=== PATIENT | male | born 1975 | race Asian ===

== ENCOUNTER 2017-08-28 12:51 | Emergency (ER) | payer MEDICAID ==
[~2017-08-28] VITALS: Ht 193 cm; Wt 110.0 kg
[~2017-08-28 12:51] MED LIST: ASPI-621 PO; CARV6.2512 PO; DIAZ2TAB PO; DIGO125T6 PO; EPLE25TA4 PO; FURO40TA6 PO; FURO80TA3 PO; FURO80TA77 PO; HYDR-3245 PO; LEVE500T53 PO; LISI-167 PO; LISI5TAB7 PO; POTA20TA14 PO; PRED1TAB PO; RIVA20TA PO; SPIR25TA PO
[2017-08-28] MEDS ORDERED: DIVA250T14 PO (13:34)
[2017-08-28] MEDS ORDERED: SERT50TA5 PO (13:34)
[2017-08-28] MEDS ORDERED: HYDR-3307 PO (13:34)
[2017-08-28] MEDS ORDERED: LORazepam 1MG TABLET ONE (13:42)
[2017-08-28] MEDS ORDERED: LORazepam 1MG TABLET PO ONE (14:00)
[2017-08-28 14:24] LABS: HEMATOCRIT 50.9 % (39.2-51.8); HEMOGLOBIN 17.5 g/dL (13.7-18.0); WHITE BLOOD COUNT 11.2 x10^3/uL (3.4-10)
[2017-08-28 14:34] LABS: BLOOD UREA NITROGEN 12 mg/dL (7-18)
[2017-08-28 15:28] VITALS: BP 120/78
== END 2017-08-28 15:30 | disposition home or self-care (01) ==
LOC: ED 15:24
DX: J20.9 Acute bronchitis, unspecified (principal); B34.9 Viral infection, unspecified; I13.0 Hypertensive heart and chronic kidney disease with heart failure and stage 1 through stage 4 chronic kidney disease, or unspecified chronic kidney disease; N18.1 Chronic kidney disease, stage 1; I50.9 Heart failure, unspecified; M10.9 Gout, unspecified; M19.90 Unspecified osteoarthritis, unspecified site
CPT/HCPCS: 36415; 71020; 80048; 82040; 83880; 85025; 93005; 99285

== ENCOUNTER 2017-09-25 14:27 | Inpatient (IN) | payer MEDICARE, MEDICAID ==
[~2017-09-25] VITALS: Ht 193 cm; Wt 103.5 kg
[~2017-09-25 14:27] MED LIST changes: +DIVA250T14 PO; +HYDR-3307 PO; +SERT50TA5 PO
[2017-09-25 14:51] LABS: BASOPHILS # (AUTO) 0.03 x10^3/uL (0-0.1); BASOPHILS % (AUTO) 0 % (0-1); EOSINOPHILS # (AUTO) 0.15 x10^3/uL (0-0.4); EOSINOPHILS % (AUTO) 1 % (1-7); LYMPHOCYTES # (AUTO) 1.39 x10^3/uL (1-3.4); LYMPHOCYTES % (AUTO) 12 % (22-44); MD NO; MEAN CORPUSCULAR HEMOGLOBIN 30.3 pg (27.5-34.5); MEAN CORPUSCULAR HGB CONC 33.8 g/dL (33.2-36.2); MEAN CORPUSCULAR VOLUME 89.8 fL (81-97); MEAN PLATELET VOLUME 8.6 fL (7.4-10.4); MONOCYTES # (AUTO) 0.77 x10^3/uL (0.2-0.8); MONOCYTES % (AUTO) 7 % (2-9); NEUTROPHILS # (AUTO) 9.56 x10^3/uL (1.8-6.8); NEUTROPHILS % (AUTO) 80 % (42-75); PLATELET COUNT 298 x10^3/uL (130-400); RED BLOOD COUNT 3.74 x10^6/uL (4.38-5.82); RED CELL DISTRIBUTION WIDTH 13.9 % (9.4-14.8)
[2017-09-25 15:02] LABS: INTERNATIONAL NORMALIZED RATIO 1.24 (0.93-1.1); PROTHROMBIN TIME 12.7 Seconds (9.6-11.5)
[2017-09-25 15:08] LABS: TROPONIN I 0.058 ng/mL (0.000-0.045)
[2017-09-25] MEDS ORDERED: OMNIPAQUE 350 MG/ML, 100ML BOTTLE ONE (15:08)
[2017-09-25] MEDS ORDERED: ASPIRIN 81 MG TABLET CHEW ONE (15:13)
[2017-09-25] MEDS ORDERED: MORPHINE SULFATE 4 MG/ML, 1ML ONE ×2 (15:14→16:08)
[2017-09-25] MEDS ORDERED: ASPIRIN 81 MG TABLET CHEW PO ONE (15:30)
[2017-09-25] MEDS: MORPHINE SULFATE 4 MG/ML, 1ML IVPush PRN ×2 (15:33→16:12)
[2017-09-25] MEDS ORDERED: PIPERACILLIN/TAZO/PMX 3.375GM 50 ML IVPB ONE (16:00)
[2017-09-25] MEDS ORDERED: VANCOMYCIN PER PHARMACY IV ONE (16:00)
[2017-09-25] MEDS ORDERED: PIPERACILLIN/TAZO/PMX 3.375GM 50 ML ONE (16:02)
[2017-09-25] MEDS ORDERED: PHARMACOKINETIC CONSULTATION MC ONE ×2 (16:30→19:30)
[2017-09-25] MEDS ORDERED: VANCOMYCIN 2,000 MG in SODIUM CHLORIDE 0.9% 500 ML IV ONE (17:00)
[2017-09-25] MEDS ORDERED: VANCOMYCIN PER PHARMACY MC SCH (18:30)
[2017-09-25] MEDS ORDERED: ONDANSETRON 2MG/ML, 2ML IVPush PRN (18:30)
[2017-09-25 18:54] LABS: FREE T4 (FREE THYROXINE) 1.43 ng/dL (0.76-1.46); THYROID STIMULATING HORMONE 0.779 mIU/L (0.358-3.740)
[2017-09-25 19:04] VITALS: BP 90/57
[2017-09-25] MEDS ORDERED: PHARMACOKINETIC MONITORING MC PRN (19:30)
[2017-09-25] MEDS: LEVETIRACETAM 500 MG in SODIUM CHLORIDE 0.9% 100 ML IV SCH (20:57)
[2017-09-25] MEDS: ENOXAPARIN 40 MG/0.4 ML SQ SCH (20:58)
[2017-09-25] MEDS: PIPERACILLIN/TAZO/PMX 3.375GM 50 ML IVPB SCH (22:47)
[2017-09-26] VITALS (7 sets, daily range): BP systolic 87–107; BP diastolic 52–73
[2017-09-26] MEDS: morphine SULFATE 10 MG/ML, 1ML IVPush PRN ×2 (01:21→21:55)
[2017-09-26] MEDS ORDERED: ALBUTEROL SULFATE 2.5 MG/3 ML NPPB PRN (04:30)
[2017-09-26] MEDS: PIPERACILLIN/TAZO/PMX 3.375GM 50 ML IVPB SCH ×4 (04:34→23:13)
[2017-09-26 04:52] LABS: BASOPHILS # (AUTO) 0.06 x10^3/uL (0-0.1); BASOPHILS % (AUTO) 1 % (0-1); EOSINOPHILS # (AUTO) 0.18 x10^3/uL (0-0.4); EOSINOPHILS % (AUTO) 2 % (1-7); LYMPHOCYTES # (AUTO) 2.21 x10^3/uL (1-3.4); LYMPHOCYTES % (AUTO) 21 % (22-44); MD NO; MEAN CORPUSCULAR HEMOGLOBIN 30.6 pg (27.5-34.5); MEAN CORPUSCULAR HGB CONC 33.6 g/dL (33.2-36.2); MEAN CORPUSCULAR VOLUME 91.2 fL (81-97); MEAN PLATELET VOLUME 8.7 fL (7.4-10.4); MONOCYTES # (AUTO) 0.68 x10^3/uL (0.2-0.8); MONOCYTES % (AUTO) 6 % (2-9); NEUTROPHILS # (AUTO) 7.43 x10^3/uL (1.8-6.8); NEUTROPHILS % (AUTO) 70 % (42-75); PLATELET COUNT 286 x10^3/uL (130-400); RED BLOOD COUNT 3.67 x10^6/uL (4.38-5.82); RED CELL DISTRIBUTION WIDTH 14.1 % (9.4-14.8)
[2017-09-26 05:01] LABS: ANION GAP 10 mmol/L (5-15); CALCIUM 8.2 mg/dL (8.5-10.1); CHLORIDE 112 mmol/L (98-107); CREATININE 0.92 mg/dL (0.7-1.3)
[2017-09-26] MEDS: VANCOMYCIN 2,000 MG in SODIUM CHLORIDE 0.9% 500 ML IV SCH ×2 (05:25→17:04)
[2017-09-26 08:51] LABS: CHOL/HDL RATIO 4.2; LDL/HDL RATIO 2.6 (0.5-3.0)
[2017-09-26] MEDS: PANTOPRAZOLE 40 MG IV IVPush SCH (10:01)
[2017-09-26] MEDS: LEVETIRACETAM 500 MG in SODIUM CHLORIDE 0.9% 100 ML IV SCH ×2 (10:01→21:56)
[2017-09-26] MEDS: DIGOXIN 0.125 MG TABLET PO SCH (10:02)
[2017-09-26] MEDS: SACUBITRIL/VALSARTAN 24MG-26MG TAB PO SCH ×2 (10:02→21:00)
[2017-09-26] MEDS: FUROSEMIDE 10 MG/ML ORAL SOL PO SCH (11:47)
[2017-09-26 16:01] LABS: AMPHETAMINE SCREEN, URINE Positive (Negative); BARBITURATE SCREEN, URINE Negative (Negative); BENZODIAZEPINE SCREEN, URINE Negative (Negative); CANNABINOID SCREEN, URINE Positive (Negative); COCAINE SCREEN, URINE Negative (Negative); METHADONE SCREEN, URINE Negative (Negative); OPIATE SCREEN, URINE Positive (Negative)
[2017-09-26] MEDS: METHOCARBAMOL 500 MG TABLET PO PRN (17:04)
[2017-09-26] MEDS: CARVEDILOL 6.25 MG TABLET PO SCH (20:00)
[2017-09-26] MEDS: ENOXAPARIN 40 MG/0.4 ML SQ SCH (21:56)
[2017-09-26] MEDS: ATORVASTATIN 40 MG TABLET PO SCH (21:56)
[2017-09-27] VITALS (8 sets, daily range): BP systolic 94–107; BP diastolic 61–72
[2017-09-27] MEDS: METHOCARBAMOL 500 MG TABLET PO PRN ×2 (03:16→10:52)
[2017-09-27] MEDS: CARVEDILOL 6.25 MG TABLET PO SCH ×2 (05:04→18:05)
[2017-09-27] MEDS: PIPERACILLIN/TAZO/PMX 3.375GM 50 ML IVPB SCH ×2 (05:07→12:11)
[2017-09-27] MEDS: ASPIRIN 81 MG TABLET EC PO SCH (05:08)
[2017-09-27] MEDS: VANCOMYCIN 2,000 MG in SODIUM CHLORIDE 0.9% 500 ML IV SCH (06:39)
[2017-09-27] MEDS: PANTOPRAZOLE 40 MG IV IVPush SCH (10:38)
[2017-09-27] MEDS: LEVETIRACETAM 500 MG in SODIUM CHLORIDE 0.9% 100 ML IV SCH (10:38)
[2017-09-27] MEDS: FUROSEMIDE 10 MG/ML ORAL SOL PO SCH (10:51)
[2017-09-27] MEDS: SACUBITRIL/VALSARTAN 24MG-26MG TAB PO SCH ×2 (10:52→21:00)
[2017-09-27] MEDS: DIGOXIN 0.125 MG TABLET PO SCH (10:52)
[2017-09-27] MEDS: OXYcodone IR 5MG TABLET PO PRN ×2 (13:30→18:05)
[2017-09-27] MEDS ORDERED: SERT100T5 PO (16:15)
[2017-09-27] MEDS ORDERED: HYDR50CA PO (16:17)
[2017-09-27] MEDS: ENOXAPARIN 40 MG/0.4 ML SQ SCH (21:26)
[2017-09-27] MEDS: ATORVASTATIN 40 MG TABLET PO SCH (21:27)
[2017-09-27] MEDS: hydrOXyzine 50MG TABLET PO SCH (21:27)
[2017-09-28] VITALS (13 sets, daily range): BP systolic 93–124; BP diastolic 44–78
[2017-09-28] MEDS: OXYcodone IR 5MG TABLET PO PRN ×2 (04:43→19:54)
[2017-09-28] MEDS: CARVEDILOL 6.25 MG TABLET PO SCH ×2 (05:15→18:00)
[2017-09-28] MEDS: ASPIRIN 81 MG TABLET EC PO SCH (05:15)
[2017-09-28] MEDS: SACUBITRIL/VALSARTAN 24MG-26MG TAB PO SCH ×2 (09:00→21:14)
[2017-09-28] MEDS: PANTOPRAZOLE 40 MG IV IVPush SCH (09:33)
[2017-09-28] MEDS: SERTRALINE 100MG TABLET PO SCH (09:34)
[2017-09-28] MEDS: DIGOXIN 0.125 MG TABLET PO SCH (09:34)
[2017-09-28] MEDS: FUROSEMIDE 10 MG/ML ORAL SOL PO SCH (09:34)
[2017-09-28] MEDS ORDERED: OXYC5TAB3 PO (14:18)
[2017-09-28] MEDS ORDERED: ALPR-475 PO (14:18)
[2017-09-28] MEDS: ATORVASTATIN 40 MG TABLET PO SCH (21:13)
[2017-09-28] MEDS: hydrOXyzine 50MG TABLET PO SCH (21:13)
[2017-09-28] MEDS: ENOXAPARIN 40 MG/0.4 ML SQ SCH (21:13)
[2017-09-29] VITALS (12 sets, daily range): BP systolic 100–123; BP diastolic 60–84
[2017-09-29] MEDS: ASPIRIN 81 MG TABLET EC PO SCH (05:51)
[2017-09-29] MEDS: CARVEDILOL 6.25 MG TABLET PO SCH ×3 (05:52→17:34)
[2017-09-29] MEDS: SERTRALINE 100MG TABLET PO SCH (08:44)
[2017-09-29] MEDS: PANTOPROZOLE 40MG TABLET PO SCH (08:45)
[2017-09-29] MEDS: DIGOXIN 0.125 MG TABLET PO SCH (08:45)
[2017-09-29] MEDS: FUROSEMIDE 10 MG/ML ORAL SOL PO SCH (08:45)
[2017-09-29] MEDS: SACUBITRIL/VALSARTAN 24MG-26MG TAB PO SCH ×2 (08:54→20:18)
[2017-09-29] MEDS ORDERED: BISACODYL 10 MG SUPP PR PRN (13:00)
[2017-09-29] MEDS ORDERED: LACTULOSE 20 GM/30 ML UDC PO PRN (13:00)
[2017-09-29] MEDS: DOCUSATE 100 MG CAPSULE PO SCH (13:00)
[2017-09-29] MEDS: SENNA/DOCUSATE TABLET PO SCH (20:17)
[2017-09-29] MEDS: ATORVASTATIN 40 MG TABLET PO SCH (20:17)
[2017-09-29] MEDS: hydrOXyzine 50MG TABLET PO SCH (20:18)
[2017-09-29] MEDS: ENOXAPARIN 40 MG/0.4 ML SQ SCH (20:18)
[2017-09-29] MEDS: OXYcodone IR 5MG TABLET PO PRN (20:18)
[2017-09-30 01:24] VITALS: BP 100/66
[2017-09-30] MEDS: OXYcodone IR 5MG TABLET PO PRN ×3 (04:56→20:37)
[2017-09-30] MEDS: ASPIRIN 81 MG TABLET EC PO SCH (04:56)
[2017-09-30 04:57] VITALS: BP 110/76
[2017-09-30] MEDS: CARVEDILOL 6.25 MG TABLET PO SCH ×2 (04:57→17:52)
[2017-09-30 07:52] VITALS: BP 106/67
[2017-09-30] MEDS: SERTRALINE 100MG TABLET PO SCH (08:04)
[2017-09-30] MEDS: PANTOPROZOLE 40MG TABLET PO SCH (08:04)
[2017-09-30] MEDS: DOCUSATE 100 MG CAPSULE PO SCH (08:04)
[2017-09-30] MEDS: DIGOXIN 0.125 MG TABLET PO SCH (08:04)
[2017-09-30] MEDS: FUROSEMIDE 10 MG/ML ORAL SOL PO SCH (08:05)
[2017-09-30] MEDS: SACUBITRIL/VALSARTAN 24MG-26MG TAB PO SCH ×2 (08:05→20:38)
[2017-09-30 12:08] VITALS: BP 101/66
[2017-09-30 13:34] VITALS: BP 92/55
[2017-09-30 20:01] VITALS: BP 103/70
[2017-09-30] MEDS: ATORVASTATIN 40 MG TABLET PO SCH (20:37)
[2017-09-30] MEDS: SENNA/DOCUSATE TABLET PO SCH (20:37)
[2017-09-30] MEDS: hydrOXyzine 50MG TABLET PO SCH (20:37)
[2017-09-30] MEDS: ENOXAPARIN 40 MG/0.4 ML SQ SCH (20:38)
[2017-09-30] MEDS ORDERED: NICOTINE 14MG/24 HR PATCH.TD24 TD ONE (22:00)
[2017-10-01 02:06] VITALS: BP 109/71
[2017-10-01] MEDS: OXYcodone IR 5MG TABLET PO PRN ×3 (02:36→16:29)
[2017-10-01] MEDS: CARVEDILOL 6.25 MG TABLET PO SCH ×2 (06:22→17:38)
[2017-10-01] MEDS: ASPIRIN 81 MG TABLET EC PO SCH (06:22)
[2017-10-01 07:35] VITALS: BP 118/77
[2017-10-01] MEDS: FUROSEMIDE 10 MG/ML ORAL SOL PO SCH (08:00)
[2017-10-01] MEDS: SACUBITRIL/VALSARTAN 24MG-26MG TAB PO SCH ×2 (08:01→20:38)
[2017-10-01] MEDS: PANTOPROZOLE 40MG TABLET PO SCH (08:02)
[2017-10-01] MEDS: DIGOXIN 0.125 MG TABLET PO SCH (08:02)
[2017-10-01] MEDS: SERTRALINE 100MG TABLET PO SCH (08:02)
[2017-10-01] MEDS: DOCUSATE 100 MG CAPSULE PO SCH (08:03)
[2017-10-01] MEDS: METHOCARBAMOL 500 MG TABLET PO PRN (12:38)
[2017-10-01 13:25] VITALS: BP 94/55
[2017-10-01 17:37] VITALS: BP 107/74
[2017-10-01 20:30] VITALS: BP 98/59
[2017-10-01] MEDS ORDERED: TEMAZEPAM 30 MG CAPSULE PO ONE (20:30)
[2017-10-01] MEDS: ATORVASTATIN 40 MG TABLET PO SCH (20:37)
[2017-10-01] MEDS: ENOXAPARIN 40 MG/0.4 ML SQ SCH (20:37)
[2017-10-01] MEDS: hydrOXyzine 50MG TABLET PO SCH (20:38)
[2017-10-02 02:40] VITALS: BP 114/74
[2017-10-02 03:31] LABS: TROPONIN I < 0.015 ng/mL (0.000-0.045)
[2017-10-02 03:41] LABS: CREATININE 0.94 mg/dL (0.7-1.3)
[2017-10-02 05:28] VITALS: BP 103/65
[2017-10-02] MEDS: CARVEDILOL 6.25 MG TABLET PO SCH ×2 (05:32→17:18)
[2017-10-02] MEDS: ASPIRIN 81 MG TABLET EC PO SCH (05:33)
[2017-10-02 07:35] VITALS: BP 111/71
[2017-10-02] MEDS: SACUBITRIL/VALSARTAN 24MG-26MG TAB PO SCH ×2 (09:00→20:53)
[2017-10-02] MEDS: DOCUSATE 100 MG CAPSULE PO SCH (09:00)
[2017-10-02] MEDS: PANTOPROZOLE 40MG TABLET PO SCH (09:20)
[2017-10-02] MEDS: FUROSEMIDE 10 MG/ML ORAL SOL PO SCH (09:20)
[2017-10-02] MEDS: SERTRALINE 100MG TABLET PO SCH (09:20)
[2017-10-02] MEDS: DIGOXIN 0.125 MG TABLET PO SCH (09:20)
[2017-10-02 09:48] LABS: TROPONIN I < 0.015 ng/mL (0.000-0.045)
[2017-10-02] MEDS: OXYcodone IR 5MG TABLET PO PRN (13:10)
[2017-10-02 14:11] VITALS: BP 82/55
[2017-10-02] MEDS ORDERED: SODIUM CHLORIDE 0.9%, 250ML IVBOLUS ONE (14:30)
[2017-10-02 15:54] VITALS: BP 94/61
[2017-10-02 16:33] LABS: TROPONIN I < 0.015 ng/mL (0.000-0.045)
[2017-10-02] MEDS ORDERED: KETOROLAC 30 MG/1 ML ONE (17:11)
[2017-10-02] MEDS ORDERED: KETOROLAC 30 MG/1 ML IM ONE (17:30)
[2017-10-02] MEDS ORDERED: KETOROLAC 30 MG/1 ML IVPush ONE (17:30)
[2017-10-02 19:44] VITALS: BP 114/66
[2017-10-02] MEDS: ENOXAPARIN 40 MG/0.4 ML SQ SCH (20:52)
[2017-10-02] MEDS: hydrOXyzine 50MG TABLET PO SCH (20:53)
[2017-10-02] MEDS: ATORVASTATIN 40 MG TABLET PO SCH (20:53)
[2017-10-03] MEDS ORDERED: DIPHENHYDRAMINE 50 MG CAPSULE PO ONE
[2017-10-03 00:08] VITALS: BP 104/71
[2017-10-03 00:26] VITALS: BP 102/66
[2017-10-03 05:29] VITALS: BP 82/47
[2017-10-03] MEDS: CARVEDILOL 6.25 MG TABLET PO SCH (05:30)
[2017-10-03] MEDS: ASPIRIN 81 MG TABLET EC PO SCH (05:31)
[2017-10-03 05:35] LABS: BASOPHILS # (AUTO) 0.05 x10^3/uL (0-0.1); BASOPHILS % (AUTO) 1 % (0-1); EOSINOPHILS # (AUTO) 0.21 x10^3/uL (0-0.4); EOSINOPHILS % (AUTO) 3 % (1-7); LYMPHOCYTES # (AUTO) 2.71 x10^3/uL (1-3.4); LYMPHOCYTES % (AUTO) 36 % (22-44); MD NO; MEAN CORPUSCULAR HEMOGLOBIN 30.1 pg (27.5-34.5); MEAN CORPUSCULAR HGB CONC 33.3 g/dL (33.2-36.2); MEAN CORPUSCULAR VOLUME 90.3 fL (81-97); MONOCYTES # (AUTO) 0.48 x10^3/uL (0.2-0.8); MONOCYTES % (AUTO) 6 % (2-9); NEUTROPHILS # (AUTO) 4.09 x10^3/uL (1.8-6.8); NEUTROPHILS % (AUTO) 54 % (42-75); PLATELET COUNT 397 x10^3/uL (130-400); RED BLOOD COUNT 4.79 x10^6/uL (4.38-5.82); RED CELL DISTRIBUTION WIDTH 14.7 % (9.4-14.8)
[2017-10-03 05:50] LABS: ALBUMIN 3.2 g/dL (3.4-5.0); ANION GAP 8 mmol/L (5-15); CHLORIDE 110 mmol/L (98-107)
[2017-10-03 05:54] LABS: ALANINE AMINOTRANSFERASE 38 U/L (12-78); ALKALINE PHOSPHATASE 64 U/L (45-117); CREATININE 0.93 mg/dL (0.7-1.3); TOTAL PROTEIN 6.8 g/dL (6.4-8.2)
[2017-10-03 08:59] VITALS: BP 96/61
[2017-10-03] MEDS: DOCUSATE 100 MG CAPSULE PO SCH (09:00)
[2017-10-03] MEDS ORDERED: FUROSEMIDE 20 MG TABLET PO SCH (09:00)
[2017-10-03] MEDS: PANTOPROZOLE 40MG TABLET PO SCH (09:03)
[2017-10-03] MEDS: SERTRALINE 100MG TABLET PO SCH (09:03)
[2017-10-03] MEDS: DIGOXIN 0.125 MG TABLET PO SCH (09:03)
[2017-10-03] MEDS: SACUBITRIL/VALSARTAN 24MG-26MG TAB PO SCH (09:04)
== END 2017-10-03 13:40 | disposition left against medical advice (07) | DRG 871 ==
LOC: ED 15:27 → EDIP 16:14 → 4WST 18:57
PROVIDERS: ADMIT Hospitalist; ATTEND Hospitalist
DX: A41.9 Sepsis, unspecified organism (principal); I63.511 Cerebral infarction due to unspecified occlusion or stenosis of right middle cerebral artery; J96.91 Respiratory failure, unspecified with hypoxia; J15.9 Unspecified bacterial pneumonia; D68.9 Coagulation defect, unspecified; C95.90 Leukemia, unspecified not having achieved remission; I13.0 Hypertensive heart and chronic kidney disease with heart failure and stage 1 through stage 4 chronic kidney disease, or unspecified chronic kidney disease; I31.3 Pericardial effusion (noninflammatory); I50.9 Heart failure, unspecified; I69.354 Hemiplegia and hemiparesis following cerebral infarction affecting left non-dominant side; R41.4 Neurologic neglect syndrome; I25.5 Ischemic cardiomyopathy; D64.9 Anemia, unspecified; F12.90 Cannabis use, unspecified, uncomplicated; F15.90 Other stimulant use, unspecified, uncomplicated; F41.9 Anxiety disorder, unspecified; G40.909 Epilepsy, unspecified, not intractable, without status epilepticus; G47.33 Obstructive sleep apnea (adult) (pediatric); W19.XXXA Unspecified fall, initial encounter; Z53.21 Procedure and treatment not carried out due to patient leaving prior to being seen by health care provider; I48.91 Unspecified atrial fibrillation; M1A.9XX0 Chronic gout, unspecified, without tophus (tophi); N18.1 Chronic kidney disease, stage 1; R29.810 Facial weakness; Z72.0 Tobacco use; Z79.82 Long term (current) use of aspirin; Z79.899 Other long term (current) drug therapy; Z82.49 Family history of ischemic heart disease and other diseases of the circulatory system; Z83.3 Family history of diabetes mellitus; Z87.01 Personal history of pneumonia (recurrent); Z92.21 Personal history of antineoplastic chemotherapy; Z95.0 Presence of cardiac pacemaker; Z95.810 Presence of automatic (implantable) cardiac defibrillator; Y93.89 Activity, other specified; Y92.89 Other specified places as the place of occurrence of the external cause
CPT/HCPCS: 36415; 36600; 70450; 70496; 70498; 70551; 71010; 72125; 80047; 80048; 80053; 80061; 80202; 80307; 82565; 82803; 83605; 83735; 83880; 84100; 84439; 84443; 84484; 85025; 85610; 85730; 87040; 88184; 88185; 88189; 93005; 93306; 96365; 96375; 96376; J1650; J1885; J1953; J2543; J3370; Q9967; 92522-GN; C9113; G0479; J2270; J7040

== ENCOUNTER 2017-10-03 15:08 | Emergency (ER) | payer MEDICARE, MEDICAID ==
[~2017-10-03] VITALS: Ht 193 cm; Wt 105.0 kg
[~2017-10-03 15:08] MED LIST changes: +ALPR-475 PO; +HYDR50CA PO; +OXYC5TAB3 PO; +SERT100T5 PO
[2017-10-03] MEDS ORDERED: ASPIRIN 81 MG TABLET CHEW PO ONE (15:30)
[2017-10-03] MEDS ORDERED: ASPIRIN 81 MG TABLET CHEW ONE (15:52)
[2017-10-03 16:03] VITALS: BP 111/77
[2017-10-03 16:07] LABS: BASOPHILS # (AUTO) 0.03 x10^3/uL (0-0.1); BASOPHILS % (AUTO) 0 % (0-1); EOSINOPHILS % (AUTO) 1 % (1-7); LYMPHOCYTES # (AUTO) 1.65 x10^3/uL (1-3.4); LYMPHOCYTES % (AUTO) 19 % (22-44); MD NO; MEAN CORPUSCULAR HEMOGLOBIN 30.2 pg (27.5-34.5); MEAN CORPUSCULAR VOLUME 91.4 fL (81-97); MEAN PLATELET VOLUME 8.1 fL (7.4-10.4); MONOCYTES # (AUTO) 0.34 x10^3/uL (0.2-0.8); MONOCYTES % (AUTO) 4 % (2-9); NEUTROPHILS # (AUTO) 6.52 x10^3/uL (1.8-6.8); NEUTROPHILS % (AUTO) 75 % (42-75); PLATELET COUNT 436 x10^3/uL (130-400); RED BLOOD COUNT 5.17 x10^6/uL (4.38-5.82); RED CELL DISTRIBUTION WIDTH 14.3 % (9.4-14.8)
[2017-10-03 16:10] LABS: INTERNATIONAL NORMALIZED RATIO 1.1 (0.93-1.1); PROTHROMBIN TIME 11.4 Seconds (9.6-11.5)
[2017-10-03 16:13] LABS: ALANINE AMINOTRANSFERASE 43 U/L (12-78); ALBUMIN 3.7 g/dL (3.4-5.0); ANION GAP 10 mmol/L (5-15); CALCIUM 9.2 mg/dL (8.5-10.1); CHLORIDE 109 mmol/L (98-107); CREATININE 1.13 mg/dL (0.7-1.3)
[2017-10-03 16:17] LABS: ALKALINE PHOSPHATASE 75 U/L (45-117); TOTAL PROTEIN 7.6 g/dL (6.4-8.2); TROPONIN I < 0.015 ng/mL (0.000-0.045)
== END 2017-10-03 17:33 | disposition short-term general hospital (02) ==
LOC: ED 17:00
DX: S09.93XA Unspecified injury of face, initial encounter (principal); I63.9 Cerebral infarction, unspecified; F17.210 Nicotine dependence, cigarettes, uncomplicated; I13.10 Hypertensive heart and chronic kidney disease without heart failure, with stage 1 through stage 4 chronic kidney disease, or unspecified chronic kidney disease; N18.1 Chronic kidney disease, stage 1; Z95.810 Presence of automatic (implantable) cardiac defibrillator; W01.0XXA Fall on same level from slipping, tripping and stumbling without subsequent striking against object, initial encounter; Y93.89 Activity, other specified; Y92.89 Other specified places as the place of occurrence of the external cause; Y99.8 Other external cause status
CPT/HCPCS: 36415; 71045; 80053; 83880; 84484; 85025; 85610; 93005; 99285

== ENCOUNTER 2017-10-08 09:53 | Emergency (ER) | payer MEDICARE, MEDICAID ==
[~2017-10-08] VITALS: Ht 193 cm; Wt 100.0 kg
[2017-10-08 11:48] VITALS: BP 120/85
== END 2017-10-08 12:14 | disposition short-term general hospital (02) ==
LOC: ED 10:42
DX: S00.93XA Contusion of unspecified part of head, initial encounter (principal); W06.XXXA Fall from bed, initial encounter; Y93.89 Activity, other specified; Y92.009 Unspecified place in unspecified non-institutional (private) residence as the place of occurrence of the external cause; Y99.9 Unspecified external cause status; I13.0 Hypertensive heart and chronic kidney disease with heart failure and stage 1 through stage 4 chronic kidney disease, or unspecified chronic kidney disease; N18.1 Chronic kidney disease, stage 1; I50.9 Heart failure, unspecified; Z86.73 Personal history of transient ischemic attack (TIA), and cerebral infarction without residual deficits
CPT/HCPCS: 70450; 99285

== ENCOUNTER 2017-10-24 21:09 | Inpatient (IN) | payer MEDICARE, MEDICAID ==
[~2017-10-24] VITALS: Ht 193 cm; Wt 98.6 kg
[2017-10-24 21:49] LABS: BASOPHILS # (AUTO) 0.06 x10^3/uL (0-0.1); BASOPHILS % (AUTO) 1 % (0-1); EOSINOPHILS # (AUTO) 0.17 x10^3/uL (0-0.4); EOSINOPHILS % (AUTO) 2 % (1-7); LYMPHOCYTES # (AUTO) 3.79 x10^3/uL (1-3.4); LYMPHOCYTES % (AUTO) 35 % (22-44); MD NO; MEAN CORPUSCULAR HEMOGLOBIN 29.5 pg (27.5-34.5); MEAN CORPUSCULAR HGB CONC 33.3 g/dL (33.2-36.2); MEAN CORPUSCULAR VOLUME 88.6 fL (81-97); MEAN PLATELET VOLUME 8.5 fL (7.4-10.4); MONOCYTES # (AUTO) 0.72 x10^3/uL (0.2-0.8); MONOCYTES % (AUTO) 7 % (2-9); NEUTROPHILS # (AUTO) 6.25 x10^3/uL (1.8-6.8); NEUTROPHILS % (AUTO) 57 % (42-75); PLATELET COUNT 309 x10^3/uL (130-400); RED BLOOD COUNT 5.02 x10^6/uL (4.38-5.82); RED CELL DISTRIBUTION WIDTH 13.5 % (9.4-14.8)
[2017-10-24 22:02] LABS: ALBUMIN 3.7 g/dL (3.4-5.0); ANION GAP 10 mmol/L (5-15); CALCIUM 8.9 mg/dL (8.5-10.1); CHLORIDE 110 mmol/L (98-107); CREATININE 0.97 mg/dL (0.7-1.3)
[2017-10-24 22:06] LABS: TROPONIN I < 0.015 ng/mL (0.000-0.045)
[2017-10-24] MEDS ORDERED: ACETAMINOPHEN 325 MG TABLET PO PRN (23:00)
[2017-10-24] MEDS ORDERED: DOCUSATE 100 MG CAPSULE PO PRN (23:00)
[2017-10-24] MEDS ORDERED: HYDROcodone/APAP 5/325 TABLET PO PRN (23:00)
[2017-10-24] MEDS ORDERED: SODIUM CHLORIDE FLUSH 10ML SYR IVF PRN (23:00)
[2017-10-24] MEDS: HYDROcodone/APAP 10/325 MG TABLET PO SCH (23:00)
[2017-10-24] MEDS ORDERED: ONDANSETRON 2MG/ML, 2ML IVPush PRN (23:00)
[2017-10-24] MEDS ORDERED: POLYETHYLENE GLYCOL 17 GM PACKET PO PRN (23:00)
[2017-10-24 23:21] VITALS: BP 131/80
[2017-10-25] MEDS: SERTRALINE 100MG TABLET PO SCH ×2 (00:22→21:11)
[2017-10-25] MEDS: ENOXAPARIN 40 MG/0.4 ML SQ SCH ×2 (00:22→21:11)
[2017-10-25] MEDS: CARVEDILOL 6.25 MG TABLET PO SCH ×3 (00:24→21:11)
[2017-10-25 02:48] LABS: AMPHETAMINE SCREEN, URINE Negative (Negative); BARBITURATE SCREEN, URINE Negative (Negative); BENZODIAZEPINE SCREEN, URINE Negative (Negative); CANNABINOID SCREEN, URINE Positive (Negative); COCAINE SCREEN, URINE Negative (Negative); METHADONE SCREEN, URINE Negative (Negative); OPIATE SCREEN, URINE Positive (Negative)
[2017-10-25 03:08] VITALS: BP 95/66
[2017-10-25] MEDS: ASPIRIN 81 MG TABLET EC PO SCH (05:56)
[2017-10-25 06:52] LABS: TROPONIN I < 0.015 ng/mL (0.000-0.045)
[2017-10-25 08:26] VITALS: BP 88/67
[2017-10-25] MEDS: SERTRALINE 50MG TABLET PO SCH (08:29)
[2017-10-25] MEDS: SODIUM CHLORIDE FLUSH 10ML SYR IVF SCH ×2 (08:29→21:10)
[2017-10-25] MEDS: DIGOXIN 0.125 MG TABLET PO SCH (08:30)
[2017-10-25] MEDS: HYDROcodone/APAP 10/325 MG TABLET PO SCH ×3 (08:31→21:11)
[2017-10-25] MEDS ORDERED: FUROSEMIDE 80 MG TABLET PO SCH (09:00)
[2017-10-25] MEDS ORDERED: LISINOPRIL 5 MG TABLET PO SCH (09:00)
[2017-10-25] MEDS ORDERED: REGADENOSON 0.4 MG/5 ML SYRINGE ONE (10:19)
[2017-10-25] MEDS ORDERED: AMINOPHYLLINE 25 MG/ML, 10ML ONE (10:40)
[2017-10-25 13:00] VITALS: BP 103/74
[2017-10-25] MEDS: NICOTINE 21 MG/24 HR PATCH.TD24 TD SCH (16:59)
[2017-10-25 18:20] VITALS: BP 108/66
[2017-10-25] MEDS ORDERED: FUROSEMIDE 40 MG TABLET PO SCH ×2 (21:00)
[2017-10-25 21:20] VITALS: BP 102/63
[2017-10-26 01:16] VITALS: BP 104/69
[2017-10-26] MEDS: ASPIRIN 81 MG TABLET EC PO SCH (05:55)
[2017-10-26 07:10] VITALS: BP 106/77
[2017-10-26] MEDS: DIGOXIN 0.125 MG TABLET PO SCH (08:29)
[2017-10-26] MEDS: HYDROcodone/APAP 10/325 MG TABLET PO SCH ×2 (08:29→15:02)
[2017-10-26] MEDS: CARVEDILOL 6.25 MG TABLET PO SCH (08:29)
[2017-10-26] MEDS: SODIUM CHLORIDE FLUSH 10ML SYR IVF SCH (08:30)
[2017-10-26] MEDS: SERTRALINE 50MG TABLET PO SCH (08:32)
[2017-10-26] MEDS: NICOTINE 21 MG/24 HR PATCH.TD24 TD SCH (08:34)
[2017-10-26] MEDS ORDERED: LISINOPRIL 5 MG TABLET PO SCH (09:00)
[2017-10-26] MEDS ORDERED: FUROSEMIDE 80 MG TABLET PO SCH (09:00)
[2017-10-26 13:23] VITALS: BP 108/64
== END 2017-10-26 16:26 | DRG 309 ==
LOC: ED 21:31 → SUATTDRO 22:39 → INTOOBSV 23:23 → EDIP 23:23 → 5SO 23:27 → OBSVTOIN 10-26 09:40
PROVIDERS: ADMIT Family Medicine; ATTEND Family Medicine
DX: I49.8 Other specified cardiac arrhythmias (principal); I13.0 Hypertensive heart and chronic kidney disease with heart failure and stage 1 through stage 4 chronic kidney disease, or unspecified chronic kidney disease; I50.22 Chronic systolic (congestive) heart failure; I69.354 Hemiplegia and hemiparesis following cerebral infarction affecting left non-dominant side; R07.9 Chest pain, unspecified; I25.5 Ischemic cardiomyopathy; F41.9 Anxiety disorder, unspecified; F10.10 Alcohol abuse, uncomplicated; M19.90 Unspecified osteoarthritis, unspecified site; F41.0 Panic disorder [episodic paroxysmal anxiety]; N18.1 Chronic kidney disease, stage 1; M10.9 Gout, unspecified; Z83.3 Family history of diabetes mellitus; Z82.49 Family history of ischemic heart disease and other diseases of the circulatory system; Z85.6 Personal history of leukemia; Z95.810 Presence of automatic (implantable) cardiac defibrillator; Z87.01 Personal history of pneumonia (recurrent)
CPT/HCPCS: 36415; 71045; 78452; 80048; 80162; 80307; 82040; 83735; 83880; 84484; 85025; 85379; 93005; 93017; 99285; G0378; J1650; J2785; A9502; C9898; J0280

== ENCOUNTER 2017-10-29 00:56 | Emergency (ER) | payer MEDICARE, MEDICAID ==
[~2017-10-29] VITALS: Ht 193 cm; Wt 89.4 kg
[2017-10-29 01:33] LABS: BASOPHILS # (AUTO) 0.06 x10^3/uL (0-0.1); BASOPHILS % (AUTO) 1 % (0-1); EOSINOPHILS # (AUTO) 0.13 x10^3/uL (0-0.4); EOSINOPHILS % (AUTO) 2 % (1-7); LYMPHOCYTES # (AUTO) 3.51 x10^3/uL (1-3.4); LYMPHOCYTES % (AUTO) 47 % (22-44); MD NO; MEAN CORPUSCULAR HEMOGLOBIN 29.4 pg (27.5-34.5); MEAN CORPUSCULAR HGB CONC 33.2 g/dL (33.2-36.2); MEAN CORPUSCULAR VOLUME 88.5 fL (81-97); MEAN PLATELET VOLUME 9.3 fL (7.4-10.4); MONOCYTES # (AUTO) 0.57 x10^3/uL (0.2-0.8); MONOCYTES % (AUTO) 8 % (2-9); NEUTROPHILS # (AUTO) 3.23 x10^3/uL (1.8-6.8); NEUTROPHILS % (AUTO) 43 % (42-75); PLATELET COUNT 240 x10^3/uL (130-400); RED BLOOD COUNT 4.83 x10^6/uL (4.38-5.82); RED CELL DISTRIBUTION WIDTH 13.9 % (9.4-14.8)
[2017-10-29 01:44] LABS: D-DIMER 0.25 ug/mlFEU (0.00-0.52); INTERNATIONAL NORMALIZED RATIO 1.05 (0.93-1.1); PROTHROMBIN TIME 10.9 Seconds (9.6-11.5)
[2017-10-29 01:45] LABS: ALANINE AMINOTRANSFERASE 28 U/L (12-78); ALBUMIN 3.5 g/dL (3.4-5.0); ANION GAP 9 mmol/L (5-15); CALCIUM 8.3 mg/dL (8.5-10.1); CHLORIDE 113 mmol/L (98-107); CREATININE 0.76 mg/dL (0.7-1.3)
[2017-10-29 01:49] LABS: ALKALINE PHOSPHATASE 100 U/L (45-117); BILIRUBIN,TOTAL 0.3 mg/dL (0.2-1.0); TOTAL PROTEIN 6.7 g/dL (6.4-8.2); TROPONIN I < 0.015 ng/mL (0.000-0.045)
[2017-10-29 04:15] LABS: TROPONIN I < 0.015 ng/mL (0.000-0.045)
[2017-10-29 04:33] VITALS: BP 114/82
== END 2017-10-29 05:01 | disposition home or self-care (01) ==
LOC: ED 01:04
DX: R07.89 Other chest pain (principal); I13.0 Hypertensive heart and chronic kidney disease with heart failure and stage 1 through stage 4 chronic kidney disease, or unspecified chronic kidney disease; N18.1 Chronic kidney disease, stage 1; I50.9 Heart failure, unspecified
CPT/HCPCS: 36415; 71045; 80053; 84484; 85025; 85379; 85610; 85730; 93005; 99285